=== PATIENT | female | born 2005 | race African-American/Black ===

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

== ENCOUNTER 2025-08-09 00:12 | Emergency (ER) | payer MEDICAID, SELFPAY ==
--- OUTSIDE RECORDS SUMMARY | 2025-08-09 00:15 | XMS_ITS | Clinical Summary ---
Author Organization [facility] Address [address] [place] [id number] Care Team Providers Care Mill Manager Name Role Phone None Primary Care Provider Unavailabl e Allergies No known active allergies Medications clotrimazole 1 % ointIndications :Tinea corporis Apply topically to affected area(s) 3 times daily. 45 g 1 6 Active Active Problems No known active problems Immunizations Immunization Administration Dates Next Due DTaP 02/04/2010, 8,07/12/2007,2005,05/01/2006 [...] drink = 0.6 oz pur e alcohol) Interpersonal Safety Answer Date Record ed Are you being hit, kicked, p ushed or yelled at (see row info)? 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 Gender Identity Not on file Sexual Orientation [...] Health Maintenance Due Date Last Done Comments Tetanus booster 2016 Well Child Check for age 3-20 01/07/2017 01/08/2016 Depression screening for age 12+ 2017 HIV for age 15-65 2020 HPV series for age 9-45 (1 - 3-dose series) 2020 BMI (ht and wt on same day) for age 18+ 12/30/2023 Hepatitis C screening for age 18-79 12/30/2023 COVID-19 vaccine series ( - 2024- season) 2025 05/19/2021, 04/16/2021 Influenza Vaccine (#1) 2025 06/20/2012 RSV vaccine for adults or (1 - 1-dose 75+ series) 2080 Hepatitis B series for 19+ Completed 07/04, 05/01/2006, 02/22/2006, Additional history exists Pneumococcal series for age 6-49 Completed 02/04/2010, 01/01/2007, 07/04/2006, Additional history exists Meningococcal series for age 11-21 Aged Out No longer eligible based on patient's age to complete this topic Insurance [facility] Care Teams Mill Manager Relationship Specialty Start Date End Date None . PCP - General 03/18/24
--- OUTSIDE RECORDS SUMMARY | 2025-08-09 00:15 | XMS_ITS | Clinical Summary ---
Author Organization [facility] Address [address] [place] [id number] Care Team Providers Care Cigar Making Supervisor Name Role Phone System, Provider Not [...] SCREENING 2005 YEARLY PREVENTIVE VISIT 2008 DTAP/TDAP/TD VACCINE (6 - Tdap) 2016 02/04/2010, 02/23/2008, 07/12/2007, Additional history exists HIV SCREENING 2020 HPV VACCINE (1 - 3-dose series) 2020 MENINGITIS B VACCINE (1 of 2 - Standard) 2021 HEPATITIS C SCREENING 12/30/2023 PHQ-2 (once per calendar year) 2024 COVID-19 VACCINE ( season) 2025 INFLUENZA VACCINE (#1) 2025 2, 05/03/2011, 10/21/2010, Additional history exists ZOSTER VACCINE (1 of 2) 12/30/2055 HEPATITIS B VACCINE Completed 07/04/2006, 05/01/2006, 02/22/2006, Additional history exists HIB VACCINE Completed 01/01/2007, 04/05, 02/22/2006 IPV VACCINE Completed 02/04/2010, 06/06, 05/01/2006, Additional history exists PNEUMOCOCCAL VACCINE: PEDIATRICS (0 to 5 YEARS) AND AT-RISK PATIENTS (6 to 49 YEARS) Completed 02/04/2010, 01/01/2007, 07/04/2006, Additional history exists VARICELLA VACCINE Completed 02/04/2010, 01/17/2008 MENINGITIS VACCINE Aged Out No longer eligible based on patient's age to complete this topic Insurance [employer] Care Teams Cigar Making Supervisor Relationship Specialty Start Date End Date System, Provider Not In PCP - General Clinic 12/20/23
[2025-08-09 00:16] VITALS: BP 123/81; PULSE 73; RESP 18; TEMP 36.5; O2SAT 99; BMI 23.8
--- NOTE | 2025-08-09 00:21 | ED.GENADULT ---
HPI - General Adult General Time Seen by Provider: 00:21 Date Seen: 08/09/25 Chief complaint: Cough Stated complaint: Coughing blood Time Seen by Provider: 08/09/25 00:20 Source: patient and RN notes reviewed Mode of arrival: ambulatory Limitations: no limitations History of Present Illness HPI narrative: This 19-year-old female is coming in independently to be evaluated for worsening cough over the week. She started getting sick on Monday. The cough has worsened, is productive and she is starting to note blood-tinged sputum. She has no shortness of breath, no chest pain. She has no fevers but has felt some hot and cold symptoms through this. She starting to get a little sore throat. Denies any otalgia, no significant nasal congestion or drainage. She has no history of asthma, no smoking/no tobacco use. Related Data Previous Rx's ?Medication ?Instructions ?Recorded fluoxetine 10 mg capsule 10 mg PO QDAY #7 caps 11/20/24 fluoxetine 20 mg capsule 20 mg PO QDAY #60 caps 11/20/24 hydroxyzine HCl 25 mg tablet 25 mg PO QHS #60 tabs 11/20/24 Allergies Allergy/AdvReac Type Severity Reaction Status Date / Time No Known Allergies Allergy Verified 07/21/25 11:20 Review of Systems Status of ROS: Reports: 6 or more systems reviewed and unremarkable except as noted in History and below PFSH PFSH Family History Family/Other Diabetes Brother Seizure Other Family history of elevated blood lipids High blood pressure Social History Narrative: Nonsmoker Siblings: Ingris Franco (b. 2009), Zofiajerry Franco (b. 2010), Trelyly Franco (b. 2016) Smoking Status: Never smoker Do you use any of these nicotine containing products: None Second hand tobacco smoke exposure: No How often do you have a drink containing alcohol: never How often do you have six or more drinks on one occasion: Never AUDIT-C Alcohol total score: 0 Non-prescribed substance use: denies use service: No Exam Const: Vital Signs, click to edit/add: Vital Signs - 24 hr 08/09/25 00:16 Temperature 97.7 F Pulse Rate [Right Pulse Oximeter] 73 Respiratory Rate 18 Blood Pressure [Ri ght Upper Arm] 123/81 Pulse Oximetry 99 Oxygen Delivery Me thod Room Air This 19-year-old female is alert, interactive, no apparent distress. She is seen in exam room 1, is lying on the bed sitting up. Pupils equal round reactive, sclera clear, extraocular muscles intact. Symmetrical facial function. Speech is normal, no hoarseness, oropharynx completely normal, no exudates or erythema, posterior pharynx normal. TMs canals normal, no evidence abnormality. Neck supple, no adenopathy or masses. Lungs are completely clear, no wheezing, no crackles, no tachypnea, no accessory muscle use. CV regular rate and rhythm, no murmur, normal S1-S2. Abdomen is soft, nontender, nondistended. Documenting provider has reviewed patient's vital signs: yes Course Course ED Course: Patient has a respiratory illness, consider viral versus bacterial. The blood is likely from inflammatory change from whatever underlying respiratory infection she has. We did discuss doing a triple viral swab, she agrees to proceed. We will do a two view chest x-ray looking for pneumonia. She has no shortness of breath, no chest pain, no hypoxia, no tachypnea, no tachycardia which is reassuring for other potential etiologies like such things as venous thromboembolic disease. She will be observed here, see if she produces any sputum. Reevaluation(s) Time of Reevaluation #1: 01:25 Reevaluation #1: Reviewed with patient her normal chest x-ray. We discussed the irritation of the airway/lung lining that can happen with inflammation from infection, whether viral or bacterial. We are waiting her triple viral swab. Discussed doing a CBC to help figure out whether or not antibiotics might be indicated or not. She agrees to proceed. Time of Reevaluation #2: 01:49 Reevaluation #2: Have reviewed laboratory findings with patient, did discuss the anemia. Went over discharge recommendations. Plan will be to discharge to home at this time for outpatient management. Vital Signs Vital signs: Initial Vital Signs Temperature 97.7 F 08/09/25 00:16 Temperature Source Temporal Artery Scan 08/09/25 00:16 Pulse Rate 73 08/09/25 00:16 Respiratory Rate 18 08/09/25 00:16 Blood Pressure 123/81 08/09/25 00:16 Blood Pressure Mean 95 08/09/25 00:16 Blood Pressure Position Sitting 08/09/25 00:16 Pulse Oximetry 99 08/09/25 00:16 Oxygen Delivery Method Room Air 08/09/25 00:16 Vital Signs Temperature 97.7 F 08/09/25 00:16 Pulse Rate 73 08/09/25 00:16 Respiratory Rate 18 08/09/25 00:16 Blood Pressure 123/81 08/09/25 00:16 Pulse Oximetry 99 08/09/25 00:16 Oxygen Delivery Method Room Air 08/09/25 00:16 Temperature 97.7 F 08/09/25 00:16 Pulse Rate 73 08/09/25 00:16 Respiratory Rate 18 08/09/25 00:16 Blood Pressure 123/81 08/09/25 00:16 Pulse Oximetry 99 08/09/25 00:16 Oxygen Delivery Method Room Air 08/09/25 00:16 Medical Decision Making Lab Data Lab results reviewed: Yes I reviewed the patient's lab results Labs: Lab Results 08/09/25 08/09/25 Range/Units 00:30 01:32 WBC 5.44 (4.50-11.00) K/uL RBC 3.90 L (4.00-5.20) m/uL Hgb 11.1 L (12.0-16.0) gm/dL Hct 34.7 (33.0-51.0) % MCV 89 (80-100) fL MCH 29 (26-34) pg MCHC 32 (32-36) gm/dL RDW Coeff of Saurabh 13.7 (11.5-15.5) % Plt Count 231 (140-440) K/uL Neut % (Auto) 52.0 (42.0-72.0) % Lymph % (Auto) 36.2 (20-44) % [place] % (Auto) 10.5 (0.0-11.0) % Eos % (Auto) 1.1 (0.0-7.0) % Baso % (Auto) 0.2 (0.0-3.0) % Neut # (Auto) 2.83 (1.7-7.0) K/uL Lymph # (Auto) 1.97 (0.90-2.90) K/uL [place] # (Auto) 0.60 (0.00-0.90) K/UL Eos # (Auto) 0.06 (0.00-0.50) K/uL Baso # (Auto) 0.01 (0.00-0.30) K/uL Abs Immat Gran (auto) 0.00 (0.00-0.30) K/uL Imm/Tot Granulo (auto) 0.0 % SARS-CoV-2 (PCR) Negative SARS-CoV-2 (Negative) Influenza Type A (PCR) Negative PCR FLU A (Negative) Influenza Type B (PCR) Negative PCR FLU B (Negative) RSV (PCR) Negative PCR RSV (Negative) Imaging Data Chest x-ray: Attestation: I have reviewed the pertinent imaging results. My impression: Did visualize her chest x-ray, do not appreciate any infiltrate or acute pathology. Radiologist's impression: Patient: GEOVANNA KAUFMAN Facility:?[facility] Patient ID:?[id number] Site Patient ID:?[id number]. Site :?[id number] Study:?XRay-Chest 2 VIEWS-08/09/2025 12:58:12 AM Ordering Physician:?Andrew Márquez Final Report: INDICATION: Bloody sputum. TECHNIQUE: Chest 2 views. COMPARISON: None. FINDINGS: Cardiovascular and mediastinum: Heart size is normal. Unremarkable mediastinum. Lungs and pleural spaces: Lungs are clear. No sign of infiltrate or mass. No sign of pleural effusion. No pneumothorax. Bones and soft tissues: No significant findings. IMPRESSION: No acute cardiopulmonary abnormality. Dictated by Fazal Andrade MD @ 08/09/2025 1:11:30 AM (Electronic Signature) Discharge Plan Discharge Clinical Impression: Upper respiratory infection, viral Patient Disposition: Home, Self-Care Condition: Stable Instructions: Upper Respiratory Infection (ED) Additional Instructions: there is no evidence for bacterial infection today, antibiotics are not indicated at this time. Inflammation from infection (viral in your case currently) and dry whether from winter can cause irritation to the airway lining. This can lead to some bleeding in the sputum production. You can use rfrm-[id number]-[id number] cough and cold medicines to help control your symptoms. Warm showers help put steam in the air and soothe the airways. Recommend getting a humidifier or vaporizer for your room, this will help put moisture into the air. If you are not improving over the next week, have worsening symptoms at any point you should seek re-evaluation. If you do develop a fever with worsening cough, this certainly should be re-evaluated. Your hemoglobin was minimally low here at 11.1, this can be normal for menstruating females but should be rechecked with your doctor at some point just to make sure it is stable and not worsening. Activity Level: Activity as Tolerated Discharge Diet: Regular Prescriptions: No Action hydroxyzine HCl 25 mg tablet 25 mg PO QHS Qty: 60 0RF fluoxetine 10 mg capsule 10 mg PO QDAY Qty: 7 0RF fluoxetine 20 mg capsule 20 mg PO QDAY Qty: 60 0RF Follow Up/Referrals: Francis Lim PA-C [Primary Care Provider, Family Practice] Stand Alone Forms: [employer] Info Instructions
--- NOTE | 2025-08-09 00:27 | CRLHL7_ITS ---
For Patients: As a result of the Century Cures Act, medical imaging exams and procedure reports are released immediately into your electronic medical record. You may view this report before your referring provider. If you have questions, please contact your health care provider. INDICATION: Bloody sputum. TECHNIQUE: Chest 2 views. COMPARISON: None. FINDINGS: Cardiovascular and mediastinum: Heart size is normal. Unremarkable mediastinum. Lungs and pleural spaces: Lungs are clear. No sign of infiltrate or mass. No sign of pleural effusion. No pneumothorax. Bones and soft tissues: No significant findings. IMPRESSION: No acute cardiopulmonary abnormality. Dictated by Fazal Andrade MD @ 08/09/2025 1:11:30 AM (Electronically Signed)
[2025-08-09 01:33] LABS: PCR FLU A Negative PCR FLU A (Negative); PCR FLU B Negative PCR FLU B (Negative); PCR RSV Negative PCR RSV (Negative); SARS PCR* Negative SARS-CoV-2 (Negative)
[2025-08-09 01:37] LABS: Hematocrit* 34.7 % (33.0-51.0); Hemoglobin* 11.1 gm/dL (12.0-16.0); Immature Granulocytes Abs Auto 0.00 K/uL (0.00-0.30); Immature Granulocytes Pct Auto 0.0 %; Lymphocytes Absolute Auto 1.97 K/uL (0.90-2.90); Mean Corpuscular HGB Conc 32 gm/dL (32-36); Mean Corpuscular Hemoglobin 29 pg (26-34); Mean Corpuscular Volume 89 fL (80-100); RDW Coefficient of Variation % 13.7 % (11.5-15.5); Red Blood Count* 3.90 m/uL (4.00-5.20); Slide Review Reflex No; White Blood Count* 5.44 K/uL (4.50-11.00)
[2025-08-09 01:56] VITALS: BP 121/78; PULSE 69; RESP 18; TEMP 36.5; O2SAT 99
[2025-08-09 01:57] VITALS: BP 121/78; PULSE 69; RESP 18; TEMP 36.5
== END 2025-08-09 01:58 | disposition home or self-care (01) ==
PROVIDERS: Emergency Provider Family Medicine; PCP Physician Assistant Medical
DX: J06.9 Acute upper respiratory infection, unspecified (principal); R04.2 Hemoptysis
CPT/HCPCS: 36415; 71046; 85025; 87631; 99283; 99284